=== PATIENT | male | born 1995 | race American Indian/Alaskan Native ===

== ENCOUNTER 2017-02-27 20:18 | Emergency (ER) | payer MEDICAID, OTHER ==
[2017-02-27 20:29] VITALS: BP 118/76; PULSE 73; RESP 20; TEMP 98.3; O2SAT 100
--- NOTE | 2017-02-27 21:34 | C.PDOC ---
History Of Present Illness 21 y/o male presents to the ED with complains of sore throat x1 week. Pt states he "feels like right tonsil is larger than the left." Pt also reports pain with swallowing. Denies fever, cough, SOB, chills, vomiting or any other complaints. Time Seen by Provider: 02/27/17 20:55 Chief Complaint (Nursing): ENT Problem History Per: Patient History/Exam Limitations: None Onset/Duration Of Symptoms: Days Current Symptoms Are (Timing): Still Present Symptoms Have Been: Continuous Severity: Mild Anticoagulant/Antiplatlet Use?: No Past Medical History Reviewed: Historical Data, Nursing Documentation, Vital Signs Vital Signs: Last Vital Signs Temp 98.3 F 02/27/17 20:27 Pulse 73 02/27/17 20:27 Resp 20 02/27/17 20:27 BP 118/76 02/27/17 20:27 Pulse Ox 100 02/27/17 21:54 - Medical History PMH: Schizophrenia - [facility] Procedures INDIVID PSYCHOTHERAP NEC (03/18/14) OTHER GROUP THERAPY (03/18/14) PSYCHIAT DRUG THERAP NEC (03/18/14) Family History: States: Unknown Family Hx - Social History Hx Tobacco Use: No Hx Alcohol Use: Yes Hx Substance Use: No - Immunization History Hx Tetanus Toxoid Vaccination: No Hx Influenza Vaccination: No Hx Pneumococcal Vaccination: No Review Of Systems Constitutional: Negative for: Fever, Chills ENT: Positive for: Throat Pain, Other (right tonsillar swelling, pain with swallowing) Respiratory: Negative for: Cough, Shortness of Breath Gastrointestinal: Negative for: Vomiting Physical Exam - Physical Exam Appears: Non-toxic, No Acute Distress Skin: Warm, Dry, No Rash Head: Atraumatic, Normacephalic Ear(s): Bilateral: Normal Nose: Normal Oral Mucosa: Moist Throat: Erythema (mild pharyngeal), No Exudate, Other (no tonsillar enlargement , uvula midline) Neck: Normal, Normal ROM, Supple Chest: Symmetrical Cardiovascular: Rhythm Regular, No Murmur Respiratory: Normal Breath Sounds, No Rales, No Rhonchi, No Wheezing Extremity: Bilateral: Atraumatic Neurological/Psych: Oriented x3, Normal Speech (speaking in full sentences) ED Course And Treatment O2 Sat by Pulse Oximetry: 100 (room air) Pulse Ox Interpretation: Normal - CT Scan/US CT neck soft tissue Other Rad Studies (CT/US): Read By Radiologist, Radiology Report Reviewed CT/US Interpretation: EXAM: XR Soft Tissue Neck. CLINICAL HISTORY: 21 years old, male; Pain; Painful swallowing; Additional info: Sore throat, difficulty swallowing. TECHNIQUE: Frontal and lateral views of the soft tissues of the neck. COMPARISON: No relevant prior studies available. FINDINGS: Airway: Unremarkable. No abnormal narrowing. Bones/joints: Unremarkable. Soft tissues : Unremarkable. No abnormal soft tissue prominence. Normal epiglottis. IMPRESSION: Normal neck x-rays. Thank you for allowing us to participate in the care of your patient. Dictated and Authenticated by: Hector Garza MD. 02/27/2017 9:33 PM Eastern Time ([place] & [place]) Progress Note: Plan: XR neck soft tissue. patient was d/c pb guerrero Amoxicillin and Ibuprofen with ENT follow up. Disposition - Disposition Referrals: Pradeep Romo MD [Staff Provider] - Disposition: HOME/ ROUTINE Disposition Time: 21:52 Condition: STABLE Additional Instructions: Follow up with PMD and ENT specialist within 1-2 days. Return to ED if feel worse. Prescriptions: Amoxicillin 500 mg PO Q8 #30 tab Ibuprofen [Motrin Tab] 600 mg PO Q8 #30 tab Instructions: Pharyngitis (ED) - Clinical Impression Clinical Impression: Pharyngitis - PA / [employer] DIRECT[employer] / Resident Statement MD/DO has reviewed & agrees with the documentation as recorded. - Scribe Statement The provider has reviewed the documentation as recorded by the Jhony Mesa All medical record entries made by the Scribe were at my direction and personally dictated by me. I have reviewed the chart and agree that the record accurately reflects my personal performance of the history, physical exam, medical decision making, and the department course for this patient. I have also personally directed, reviewed, and agree with the discharge instructions and disposition.
--- NOTE | 2017-02-28 09:02 | RAD ---
PROCEDURE: Radiographs of the neck (soft tissue). HISTORY: sore throat, difficulty swallowing COMPARISON: None. TECHNIQUE: Frontal and Lateral Radiographs of the neck, optimized for soft tissue visualization. FINDINGS: SOFT TISSUES: Unremarkable. No radiopaque foreign body seen. CERVICAL SPINE: Grossly unremarkable. OTHER FINDINGS: None. IMPRESSION: Unremarkable radiographs of the soft tissues of the neck.
== END 2017-02-27 22:00 | disposition home or self-care (01) ==
LOC: C.ER 20:18
DX: J02.9 Acute pharyngitis, unspecified (principal)

== ENCOUNTER 2017-03-22 21:41 | Inpatient (IN) | payer MEDICAID ==
--- NOTE | 2017-03-22 22:10 | C.PDOC ---
History Of Present Illness A 21 y/o male c/o depression and suicidal ideation today. Pt notes he was discharge from rehab today. Pt denies homicidal ideation or any physical complaints. Time Seen by Provider: 03/22/17 22:08 Chief Complaint (Nursing): Psychiatric Evaluation History Per: Patient History/Exam Limitations: no limitations Onset/Duration Of Symptoms: Hrs Current Symptoms Are (Timing): Still Present Suicide/Self Injury Attempted (Context): None Modifying Factor(s): None Severity: Mild Associated Symptoms: Depression, Suicidal Thoughts. denies: Suicidal Plan Involuntary Hold By: None Recent travel outside of the [place]: No Additional History Per: Patient Past Medical History Reviewed: Historical Data, Nursing Documentation, Vital Signs Vital Signs: Last Vital Signs Temp 97.8 F 03/23/17 04:45 Pulse 58 L 03/23/17 04:45 Resp 16 03/23/17 04:45 BP 107/66 03/23/17 04:45 Pulse Ox 100 03/23/17 04:45 - Medical History PMH: Bipolar Disorder, Depression Denies: Anxiety, HIV, HTN, Personality Disorder, Schizophrenia (denies), Seizures, Sexually Transmitted Disease - [facility] Procedures INDIVID PSYCHOTHERAP NEC (03/18/14) OTHER GROUP THERAPY (03/18/14) PSYCHIAT DRUG THERAP NEC (03/18/14) Family History: States: Unknown Family Hx - Social History Hx Tobacco Use: No Hx Alcohol Use: Yes Hx Substance Use: No (denies) - Immunization History Hx Tetanus Toxoid Vaccination: No Hx Influenza Vaccination: No Hx Pneumococcal Vaccination: No Review Of Systems Except As Marked, All Systems Reviewed And Found Negative. Constitutional: Negative for: Fever, Chills Cardiovascular: Negative for: Chest Pain, Palpitations, Light Headedness Respiratory: Negative for: Shortness of Breath Gastrointestinal: Negative for: Nausea, Vomiting, Abdominal Pain, Diarrhea Neurological: Negative for: Weakness, Numbness Psych: Positive for: Depression, Suicidal ideation. Negative for: Other ( Homicidal ideation) Physical Exam - Physical Exam Appears: Non-toxic, No Acute Distress, Other Skin: Warm, Dry Head: Atraumatic, Normacephalic Eye(s): bilateral: Normal Inspection Oral Mucosa: Moist Chest: Symmetrical Cardiovascular: Rhythm Regular, No Murmur Respiratory: Normal Breath Sounds, No Accessory Muscle Use, No Rales, No Rhonchi , No Wheezing Gastrointestinal/Abdominal: Soft, No Tenderness Neurological/Psych: Oriented x3, Normal Speech, Normal Motor, Normal Sensation, Other (No focal deficit) Gait: Steady ED Course And Treatment - Laboratory Results Result Diagrams: 03/22/17 08:55 03/22/17 08:55 ECG: Interpreted By Me, Viewed By Me ECG Rhythm: Sinus Bradycardia Interpretation Of ECG: Sinus bradycardia, J-pt. elevation-early repolarization, No reciporocal changes noted. Rate From EC O2 Sat by Pulse Oximetry: 99 (RA) Pulse Ox Interpretation: Normal - Radiology CXR: Interpreted by Me, Viewed By Me CXR Interpretation: Yes: No Acute Disease, Other (normal chest film). No: Infiltrates Progress Note: Patient has no history of chest pain or discomfort, EKG tracings of J-pt. elevation od early repolarization with no reciprocal changes. Medically cleared for psych. admission. Medical Decision Making Medical Decision Making: Impression: A 21 y/o male c/o depression and suicidal ideation. Pt notes he was discharge from rehab today. Plans: -Blood labs -UA -Reassess Disposition Discussed With DrCandi: Kathy Solorzano Counseled Patient/Family Regarding: Diagnosis - Disposition Disposition: HOSPITALIZED Disposition Time: 07:40 Condition: STABLE - POA Present On Arrival: None - Clinical Impression Clinical Impression: Depressive disorder, Alcohol use disorder, mild, abuse - Scribe Statement The provider has reviewed the documentation as recorded by the Scribjeremi hurst All medical record entries made by the Scribe were at my direction and personally dictated by me. I have reviewed the chart and agree that the record accurately reflects my personal performance of the history, physical exam, medical decision making, and the department course for this patient. I have also personally directed, reviewed, and agree with the discharge instructions and disposition.
[2017-03-22 22:37] LABS: BASO % 0.8 % (0.0-2.0); EOS # 0.1 K/uL (0.0-0.7); EOS % 1.6 % (0.0-4.0); HEMATOCRIT 44.3 % (35.0-51.0); LYMPH # 2.9 K/uL (1.0-4.3); MEAN CELL VOLUME 73.6 fL (80.0-94.0); MEAN CORPUSCULAR HEMOGLOBIN 23.6 pg (27.0-31.0); MEAN CORPUSCULAR HGB CONC 32.1 g/dL (33.0-37.0); MEAN PLATELET VOLUME 8.3 fL (7.2-11.7); MONO # 0.5 K/uL (0.0-0.8); MONO % 8.5 % (0.0-10.0); NRBC % 0.2 % (0.0-2.0); RED CELL DISTRIBUTION WIDTH 14.2 % (11.5-14.5); WHITE BLOOD COUNT 5.4 K/uL (4.8-10.8)
[2017-03-22 22:42] LABS: RBC URINE 1 /hpf (0-3); URINE BILIRUBIN NEGATIVE (NEGATIVE); URINE BLOOD NEGATIVE (NEGATIVE); URINE COLOR Yellow (YELLOW); URINE GLUCOSE (UA) NORMAL (Normal); URINE KETONE TRACE mg/dL (NEGATIVE); URINE LEUKOCYTE ESTERASE NEG Leu/uL (Negative); URINE PROTEIN 1+ mg/dL (NEGATIVE); WBC URINE 1 /hpf (0-5)
[2017-03-22 22:45] LABS: CHLORIDE 108 mmol/L (98-107)
[2017-03-22 22:46] LABS: POTASSIUM 3.7 mmol/L (3.6-5.2); SODIUM 144 mmol/L (132-148)
[2017-03-22 22:48] LABS: BILIRUBIN,TOTAL 0.7 mg/dL (0.2-1.3); CARBON DIOXIDE 24 mmol/L (22-30); GFR AFRICAN-AMERICAN > 60
[2017-03-22 22:49] LABS: ALB/GLOB RATIO 1.3 (1.0-2.1); ALKALINE PHOSPHATASE 68 U/L (38-126); ALT/SGPT 17 U/L (21-72); AST/SGOT 27 U/L (17-59); BLOOD UREA NITROGEN 9 mg/dL (9-20); GLUCOSE,RANDOM 83 mg/dL (75-110); TOTAL PROTEIN 7.1 g/dL (6.3-8.3)
[2017-03-22 22:50] LABS: ALCOHOL SERUM 62 mg/dl (0-10)
--- NOTE | 2017-03-23 09:30 | RAD ---
HISTORY: for transfer COMPARISON: No prior. TECHNIQUE: Chest PA and lateral FINDINGS: LUNGS: No active pulmonary disease. PLEURA: No significant pleural effusion identified. No pneumothorax apparent. CARDIOVASCULAR: Normal. OSSEOUS STRUCTURES: No significant abnormalities. VISUALIZED UPPER ABDOMEN: Normal. OTHER FINDINGS: None. IMPRESSION: No active disease.
--- NOTE | 2017-03-23 11:13 | PCM.PSYCH ---
Initial Psychiatric Evaluation - Initial Psychiatric Evaluation Type of Admission: Voluntary Legal Status: Capacity Chief Complaint (in patient's own words): A relapsed on drinking and was feeling suicidal History of Present Illness and Precipitating Events: This is a 21yo male, single currently homeless and unemployed, who came to the [facility] ED because of suicidal ideation with plan to overdose on pills. Patient reports that he was just discharged from [facility] to [facility] 3 months ago. He states that he was terminated from the [facility], after violating their rules (prohibited possession of a cell phone). Pt reports he became increasingly depressed and irritable and relapsed on drinking. "I was drinking and dealing with a lot of emotions and feelings;" I felt like I was very suicidal" Pt has had thoughts of suicide for the past several days. Patient became increasingly depressed and suicidal and came to the hospital to get help. He reports depressed mood, feelings of hopelessness and helplessness poor sleep and poor appetite. He denies any auditory or visual hallucinations and denies any manic or psychotic symptoms. He reports withdrawal symptoms including anxiety, headaches and sweating but denies any shakes or seizures. Past Psych History: Pt denies any hx of suicide attempts, but reports a prior hx of suicidal ideation. He denies any history of follow-up with any psychiatrist after his discharge. Past medical history None reported Past Psychiatric History - Past Psychiatric History Previous Treatment History: Inpatient Pertinent Medical Hx (Current Medical&Sleep Prob, Allergies): Allergies Allergy/AdvReac Type Severity Reaction Status Date / Time No Known Allergies Allergy Verified 03/22/17 21:54 Divalproex [Depakote DR(*BID*)] 500 mg PO BID 03/22/17 Sertraline [Zoloft] 25 mg PO DAILY 03/22/17 Review of Systems - Review of Systems All systems: reviewed and no additional remarkable complaints except - Psychiatric Psychiatric: Anxiety, Depression, Suicidal Ideation Mental Status Examination - Personal Presentation Personal Presentation: Looks stated age - Affect Affect: Constricted, Depressed - Motor Activity Motor Activity: Calm - Reliability in Providing Information Reliability in Providing Information: Good - Speech Speech: Organized - Mood Mood: Depressed, Anxious - Formal Thought Process Formal Thought Process: No Impairment - Obsessions/Compulsions Obsessions: No Compulsions: No - Cognitive Functions Orientation: Person, Place, Situation, Time Sensorium: Alert Attention/Concentration: Attentive Abstract Thinking: [place] Estimate of Intelligence: Below average Judgement: Imparied, as evidence by: Poor judgement, Imparied, as evidence by: Lack of insight into illness - Risk Risk: Suicidal, Withdrawal, Diminished functioning - Strength & Assets Inventory Strength & Assets Inventory: Cooperative - Limitations Limitations: Living alone DSM 5 DX - DSM 5 DSM 5 Diagnosis: Major depressive disorder recurrent severe without psychotic features Alcohol use disorder severe Alcohol withdrawal uncomplicated - Recommended/Plan of Treatment Treatment Recommendations and Plan of Treatment: Major depressive disorder recurrent severe without psychotic features -CBT -Psychoeducation -Supportive therapy, group therapy, individual therapy -Zoloft 50 mg PO Daily -Neurontin 100 mg by mouth 3 times a day -Trazodone 50 mg by mouth daily at bedtime Alcohol use disorder severe -CBT -Psychoeducation -Supportive therapy, individual therapy -Use [place] for abstinence Alcohol withdrawal uncomplicated -CBT -Psychoeducation -Supportive therapy, individual therapy -Librium when necessary -Folic acid/thiamine/multivitamin - Smoking Cessation Smoking Cessation Initiated: No
[2017-03-23] MEDS: Multiple Vitamins Tab PO SCH (14:37)
--- NOTE | 2017-03-23 19:58 | CARD ---
APPROVED REPORT EKG Measurement Heart [id number] <Conclusion> Sinus bradycardia ST elevation, early repolarization Abnormal ECG
[2017-03-24] MEDS: Multiple Vitamins Tab PO SCH (10:13)
--- NOTE | 2017-03-24 17:56 | PCM.PYCHPN ---
Psychiatric Progress Note - Psychiatric Progress Note Patient seen today, length of contact: 18 min Patient Chief Complaint: "I am still depressed" Problems Identified/Issues Discussed: The pt is seen, chart reviewed, case discussed with staff. The pt is compliant with medications and reports no side-effects. Symptoms are improving but needs more time to stabilize. After care discussed, support and psychoeducation given. He wants to go to a rehab Medication Change: Yes Medical Record Reviewed: Yes Mental Status Examination - Cognitive Function Orientation: Person, Place, Situation, Time Memory: Intact Attention: Poor Concentration: Poor Association: WNL Fund of Knowledge: Poor - Mood Mood: Depressed, Anxious - Affect Affect: Constricted, Depressed - Speech Speech: Appropriate - Formal Thought Process Formal Thought Process: No Impairment - Suicidal Ideation Suicidal Ideation: No - Homicidal Ideation Homicidal Ideation: No Goal/Treatment Plan - Goal/Treatment Plan Need for Continued Stay: Discharge may exacerbated symptoms, Severe functional impairment Progress Toward Problem(s) and Goals/Treatment Plan: Continue meds for depression CBT Refer to rehab, incl. [facility] Support and psychoed Attend groups and activities [place] for abstinence Estimated Date of D/C: 03/28/17
[2017-03-25] MEDS: Multiple Vitamins Tab PO SCH ×2 (11:01→12:15)
[2017-03-26 07:06] VITALS: O2SAT 98
[2017-03-26] MEDS: Multiple Vitamins Tab PO SCH (09:45)
--- NOTE | 2017-03-27 00:12 | PCM.PYCHPN ---
Psychiatric Progress Note - Psychiatric Progress Note Patient seen today, length of contact: 15 MIN Patient Chief Complaint: I'M HAVING NIGHTMARE Problems Identified/Issues Discussed: SYMPTOM MANAGEMENT PAWS Medical Problems: NOTHING ACUTE Diagnostic Results: REVIEWED DSM 5 Symptoms Update: FRAGMENTED SLEEP DUE TO NIGHTMARES Medication Change: Yes Medical Record Reviewed: Yes Mental Status Examination - Cognitive Function Orientation: Person, Place, Time Memory: Intact Attention: Poor Concentration: Poor Association: WNL Fund of Knowledge: Poor - Mood Mood: Depressed, Anxious - Affect Affect: Constricted, Depressed - Formal Thought Process Formal Thought Process: No Impairment - Suicidal Ideation Suicidal Ideation: No - Homicidal Ideation Homicidal Ideation: No Goal/Treatment Plan - Goal/Treatment Plan Need for Continued Stay: Remain at risks for inpatient hospitalization, Discharge may exacerbated symptoms, Severe functional impairment Progress Toward Problem(s) and Goals/Treatment Plan: MDD TRITATE ZOLOFT ALCOHOL USE LIBRIUM TAPER ALCOHOL USE DISORDER CBT Estimated Date of D/C: 03/28/17 - Smoking Cessation Smoking Cessation Initiated: Yes
--- NOTE | 2017-03-27 02:50 | PCM.PYCHPN ---
Psychiatric Progress Note - Psychiatric Progress Note Patient seen today, length of contact: 15 MIN Patient Chief Complaint: I SLEPT BETTER Problems Identified/Issues Discussed: MEDICATION ADHERENCE Medical Problems: NOTHING ACUTE Diagnostic Results: REVIEWED Medication Change: No Medical Record Reviewed: Yes Mental Status Examination - Cognitive Function Orientation: Person, Place, Time Memory: Intact Concentration: WNL Association: WNL Fund of Knowledge: WNL - Mood Mood: Anxious - Affect Affect: Constricted, Depressed - Speech Speech: Appropriate - Formal Thought Process Formal Thought Process: No Impairment - Suicidal Ideation Suicidal Ideation: No - Homicidal Ideation Homicidal Ideation: No Goal/Treatment Plan - Goal/Treatment Plan Need for Continued Stay: Remain at risks for inpatient hospitalization, Discharge may exacerbated symptoms, Severe functional impairment Progress Toward Problem(s) and Goals/Treatment Plan: MDD ZOLOFT SUPPORTIVE PSYCHOTHERAPY ALCOHOL USE LIBRIUM TAPER GROUPS ALCOHOL USE DISORDER CBT Estimated Date of D/C: 03/28/17
[2017-03-27] MEDS: Multiple Vitamins Tab PO SCH (09:42)
--- NOTE | 2017-03-27 13:53 | PCM.PYCHPN ---
Psychiatric Progress Note - Psychiatric Progress Note Patient seen today, length of contact: 16 min Patient Chief Complaint: "I am anxious" Problems Identified/Issues Discussed: The pt is seen, chart reviewed, case discussed with staff. Support given, CBT and MO used briefly No new symptoms reported, improving slowly and needs some more time No SEs from medications, risks discussed. After care discussed Medication Change: No Medical Record Reviewed: Yes Mental Status Examination - Cognitive Function Orientation: Person, Place, Time Memory: Intact Concentration: WNL Association: [facility] Fund of Knowledge: WN - Mood Mood: Anxious - Affect Affect: Constricted, Depressed - Speech Speech: Appropriate - Formal Thought Process Formal Thought Process: No Impairment - Suicidal Ideation Suicidal Ideation: No - Homicidal Ideation Homicidal Ideation: No Goal/Treatment Plan - Goal/Treatment Plan Need for Continued Stay: Remain at risks for inpatient hospitalization, Discharge may exacerbated symptoms, Severe functional impairment Progress Toward Problem(s) and Goals/Treatment Plan: Continue meds for depression CBT Refer to rehab, incl. [facility]. He is calling Support and psychoed Attend groups and activities [place] for abstinence Estimated Date of D/C: 03/28/17
[2017-03-27] MEDS: Benzocaine/Menthol (Cepacol) Lozenge MT PRN (17:55)
[2017-03-28] MEDS: Multiple Vitamins Tab PO SCH (11:08)
--- NOTE | 2017-03-28 12:30 | PCM.PYCHPN ---
Psychiatric Progress Note - Psychiatric Progress Note Patient seen today, length of contact: 15 MIN Patient Chief Complaint: A relapsed on drinking and was feeling suicidal Medication Change: No Medical Record Reviewed: Yes Mental Status Examination - Cognitive Function Orientation: Person, Place, Time Memory: Intact Concentration: WNL Association: WNL Fund of Knowledge: WNL - Mood Mood: Anxious - Affect Affect: Constricted, Depressed - Speech Speech: Appropriate - Formal Thought Process Formal Thought Process: No Impairment - Suicidal Ideation Suicidal Ideation: No - Homicidal Ideation Homicidal Ideation: No Goal/Treatment Plan - Goal/Treatment Plan Need for Continued Stay: Remain at risks for inpatient hospitalization, Discharge may exacerbated symptoms, Severe functional impairment Progress Toward Problem(s) and Goals/Treatment Plan: Major depressive disorder recurrent severe without psychotic features -CBT -Psychoeducation -Supportive therapy, group therapy, individual therapy -Zoloft 50 mg PO Daily -Neurontin 100 mg by mouth 3 times a day -Trazodone 50 mg by mouth daily at bedtime Alcohol use disorder severe -CBT -Psychoeducation -Supportive therapy, individual therapy -Use [place] for abstinence Alcohol withdrawal uncomplicated -CBT -Psychoeducation -Supportive therapy, individual therapy -Librium when necessary -Folic acid/thiamine/multivitamin Estimated Date of D/C: 03/28/17
[2017-03-28] MEDS: Benzocaine/Menthol (Cepacol) Lozenge MT PRN ×2 (14:09→20:53)
[2017-03-29 07:43] VITALS: BP 100/63; PULSE 73; RESP 20; TEMP 98.2
[2017-03-29] MEDS: Multiple Vitamins Tab PO SCH (09:03)
--- NOTE | 2017-03-29 09:59 | PCM.PYCHDC ---
Mental Status Examination - Mental Status Examination Orientation: Person, Place, Situation, Time Memory: Intact Mood: Neutral Affect: Constricted Speech: Soft Attention: WNL Concentration: WNL Association: WNL Fund of Knowledge: WNL Formal Thought Process: No Impairment Description of patient's judgement and insight: good, fair Psychotic Thoughts and Behaviors: denies any AVH Suicidal Ideation: No Current Homicidal Ideation?: No Discharge Summary - Discharge Note Reason for Hospitalization: This is a 21yo male, single currently homeless and unemployed, who came to the [facility] ED because of suicidal ideation with plan to overdose on pills. Patient reports that he was just discharged from [facility] to [facility] rehabilitation 3 months ago. He states that he was terminated from the [facility], after violating their rules (prohibited possession of a cell phone). Pt reports he became increasingly depressed and irritable and relapsed on drinking. "I was drinking and dealing with a lot of emotions and feelings;" I felt like I was very suicidal" Pt has had thoughts of suicide for the past several days. Patient became increasingly depressed and suicidal and came to the hospital to get help. He reports depressed mood, feelings of hopelessness and helplessness poor sleep and poor appetite. He denies any auditory or visual hallucinations and denies any manic or psychotic symptoms. He reports withdrawal symptoms including anxiety, headaches and sweating but denies any shakes or seizures. Past Psych History: Pt denies any hx of suicide attempts, but reports a prior hx of suicidal ideation. He denies any history of follow-up with any psychiatrist after his discharge. Consultations:: List each consultation separately and include: 1. Reason for request. 2. Findings. 3. Follow-up Summary of Hospital Course include:: 1. Description of specific treatment plan utilized for patients during their course of treatmen. 2. Summarize the time- course for resolution of acute symptoms and/or regressed behaviors. 3. Describe issues identified and worked on during hospitalization. 4. Describe medication utilized. 5. Describe medical problems identified and treated. 6. Reassessment of suicide risk Summary of Hospital Course: During the course of his stay, patient (pt) started progressively improving and he no longer remained irritable, depressed, and suicidal. His mood was improved and he started attending groups and meetings and started socializing. Patient denied any feelings of hopelessness, helplessness, and worthlessness, denied any problem with the sleep or appetite, denied suicidal ideation or homicidal ideation. Pt denied any auditory or visual hallucinations. Some changes were made in his current medications and patient was discharged on following medications. He tolerated these medications very well and denied any side effects. CBT and [place] were used. Pt is going to [facility] in [place]. - Final Diagnosis (DSM 5) Condition upon Discharge: STABLE DSM 5: Major depressive disorder recurrent severe without psychotic features Alcohol use disorder severe Alcohol withdrawal uncomplicated Disposition: HOME/ ROUTINE Follow-up Treatment Plan: Education: Pt was educated and counseled about the risks and benefits of taking and not taking medications. Pt was educated and counseled about the risks of drinking and abusing drugs. Pt was educated and counseled to go to the ER or call 911 if pt develop suicidal ideation or homicidal ideation, worsening of symptoms or severe side effects of the meds. Prescriptions/Medication Reconciliation: Gabapentin [Neurontin] 100 mg PO TID #90 cap Sertraline [Zoloft] 100 mg PO DAILY #30 tab traZODone [Desyrel] 50 mg PO HS PRN #30 tab PRN Reason: Insomnia - Smoking Cessation Smoking Cessation Medication prescribed: No - Antipsychotic Medications Pt discharged on 2 or more routine antipsychotic medications: No
== END 2017-03-29 14:00 | disposition home or self-care (01) | DRG 430 ==
LOC: C.ER 21:41 → C.9OBSV 03-23 04:41 → OBSVTOIN 03-23 07:59 → C.9E 03-23 08:15 → C.5E 03-23 09:24
PROVIDERS: ADMIT Psychiatry & Neurology Psychiatry; ATTEND Psychiatry & Neurology Psychiatry
PROC: HZ2ZZZZ Detoxification Services for Substance Abuse Treatment (ICD-10-PCS; principal; 2017-03-23)
PROC: GZHZZZZ Group Psychotherapy (ICD-10-PCS; 2017-03-23)
PROC: HZ52ZZZ Individual Psychotherapy for Substance Abuse Treatment, Cognitive-Behavioral (ICD-10-PCS; 2017-03-23)
PROC: HZ56ZZZ Individual Psychotherapy for Substance Abuse Treatment, Psychoeducation (ICD-10-PCS; 2017-03-23)
PROC: HZ59ZZZ Individual Psychotherapy for Substance Abuse Treatment, Supportive (ICD-10-PCS; 2017-03-23)
DX: F33.2 Major depressive disorder, recurrent severe without psychotic features (principal); R45.851 Suicidal ideations; F10.230 Alcohol dependence with withdrawal, uncomplicated; Y90.3 Blood alcohol level of 60-79 mg/100 ml; Z59.0 Homelessness; F41.9 Anxiety disorder, unspecified